=== PATIENT | male | born 1980 | race Caucasian/White ===

== ENCOUNTER 2019-03-09 14:58 | Emergency (ER) | payer MEDICAID ==
[~2019-03-09] VITALS: Ht 182.9 cm; Wt 77.0 kg
[2019-03-09 14:59] VITALS: BP 134/88
--- NOTE | 2019-03-09 15:31 | NUR ---
Patient/Caregiver given discharge instructions and they have confirmed that they understand the instructions. Patient ambulatory with steady gait.
== END 2019-03-09 15:33 | disposition home or self-care (01) ==
LOC: ED 15:30
DX: H92.02 Otalgia, left ear (principal)
CPT/HCPCS: 99281